=== PATIENT | female | born 1945 | race Caucasian/White ===

== ENCOUNTER 2018-04-30 14:10 | Outpatient (CLI) | payer MEDICARE, OTHER | END 2018-04-30 14:11 | disposition home or self-care (01) | LOC: BICMAMMO 14:10 | PROVIDERS: ATTEND Internal Medicine Geriatric Medicine | DX: Z13.820 Encounter for screening for osteoporosis (principal); N63.10 Unspecified lump in the right breast, unspecified quadrant; M85.89 Other specified disorders of bone density and structure, multiple sites; R92.8 Other abnormal and inconclusive findings on diagnostic imaging of breast | CPT/HCPCS: 77066; 77080; G0279 ==

== ENCOUNTER 2018-10-23 18:36 | Emergency (ER) | payer MEDICARE, OTHER ==
[2018-10-23] MEDS ORDERED: Adacel (T-DAP) 0.5 ML SYRINGE ONE (20:49)
[2018-10-23] MEDS ORDERED: Bacitracin Zinc 1 Packet ONE (21:23)
== END 2018-10-23 21:33 | disposition home or self-care (01) ==
LOC: ERS 18:36
DX: S01.01XA Laceration without foreign body of scalp, initial encounter (principal); W01.198A Fall on same level from slipping, tripping and stumbling with subsequent striking against other object, initial encounter
CPT/HCPCS: 12011; 90471; 90715

== ENCOUNTER 2019-05-02 15:48 | Outpatient (CLI) | payer MEDICARE, OTHER ==
--- NOTE | 2019-05-02 16:37 | MMO ---
Bilateral MAMMO Bilat Screen [facility]. CLINICAL HISTORY: Patient is 73 years old and is seen for screening. The patient has no family history of breast cancer. The patient has no personal history of cancer. The patient has a history of right Excisional Biopsy at age 50. VIEWS: The views performed were: bilateral craniocaudal with tomosynthesis and bilateral mediolateral oblique with tomosynthesis. FILMS COMPARED: The present examination has been compared to prior imaging studies performed at [facility] on 01/13/2016, 01/15/2017 and 04/30/2018, and at [facility] on 01/08/2015. This study has been interpreted with the assistance of computer-aided detection. MAMMOGRAM FINDINGS: There are scattered fibroglandular densities. There are benign appearing calcifications seen in both breasts. There are no suspicious masses, suspicious calcifications, or new areas of architectural distortion. IMPRESSION: THERE IS NO MAMMOGRAPHIC EVIDENCE OF MALIGNANCY. A ROUTINE FOLLOW-UP MAMMOGRAM IN 1 YEAR IS RECOMMENDED. THE RESULTS OF THIS EXAM WERE SENT TO THE PATIENT. ACR BI-RADS Category 2 - Benign finding MAMMOGRAPHY NOTE: 1. A negative mammogram report should not delay a biopsy if a dominant of clinically suspicious mass is present. 2. Approximately 10% to 15% of breast cancers are not detected by mammography. 3. Adenosis and dense breasts may obscure an underlying neoplasm. Reported by: JO-ANN KAM MD Electonically Signed: [id number]
== END 2019-05-02 15:49 | disposition home or self-care (01) ==
LOC: BICMAMMO 15:48
PROVIDERS: ATTEND Internal Medicine
DX: Z12.31 Encounter for screening mammogram for malignant neoplasm of breast (principal)
CPT/HCPCS: 77063; 77067

== ENCOUNTER 2019-08-11 08:13 | Outpatient (CLI) | payer MEDICARE, OTHER ==
--- NOTE | 2019-08-11 08:59 | MMO ---
Right Breast MAMMO Unilat Diag [facility]. CLINICAL HISTORY: Patient is 73 years old and is seen for diagnostic exam and palpable abnormality in the right breast. The patient has no family history of breast cancer. The patient has no personal history of cancer. The patient has a history of right Excisional Biopsy at age 50. VIEWS: The views performed were: right craniocaudal with tomosynthesis; right mediolateral oblique with tomosynthesis; and right mediolateral with tomosynthesis. FILMS COMPARED: The present examination has been compared to prior imaging studies performed at [facility] on 01/15/2017, 04/30/2018, 05/02/2019 and 08/11/2019. This study has been interpreted with the assistance of computer-aided detection. MAMMOGRAM FINDINGS: There are scattered fibroglandular densities. There are benign appearing calcifications in the right breast. No mammographic abnormality is seen at the site of palpable concern (4:00). Please see US report. IMPRESSION: FINDING IN THE RIGHT BREAST REQUIRES ADDITIONAL EVALUATION. AN ULTRASOUND EXAM IS RECOMMENDED. THE RESULTS OF THIS EXAM WERE SENT TO THE PATIENT. ACR BI-RADS Category 0 - Incomplete: Need additional imaging evaluation. [facility] will notify the patient of the need for additional imaging services. MAMMOGRAPHY NOTE: 1. A negative mammogram report should not delay a biopsy if a dominant of clinically suspicious mass is present. 2. Approximately 10% to 15% of breast cancers are not detected by mammography. 3. Adenosis and dense breasts may obscure an underlying neoplasm. Reported by: ERIK BLOOD MD Electonically Signed: [id number]
--- NOTE | 2019-08-11 09:11 | ULT ---
RIGHT BREAST ULTRASOUND: HISTORY: Palpable abnormality at the 4 o'clock position of the right breast. CORRELATION: Mammogram from the same day. FINDINGS: Sonographic evaluation of the region of palpable concern in the 4 o'clock position of the right breas t, 2 cm from the nipple, demonstrates a well circumscribed, nonshadowing, fairly anechoic mass, measu ring about 3 mm, without definite through transmission. This likely represents a cyst but since there is no definite through transmission, recommend followup with ultrasound in six months. IMPRESSION: BI-RADS category 3 - probably benign findings. Six month follow-up right breast ultrasound is recommended. POS: OFF
== END 2019-08-11 08:14 | disposition home or self-care (01) ==
LOC: BICMAMMO 08:13
PROVIDERS: ATTEND Physician Assistant
DX: N63.10 Unspecified lump in the right breast, unspecified quadrant (principal)
CPT/HCPCS: 76642; 77065; G0279

== ENCOUNTER 2020-01-20 07:49 | Outpatient (CLI) | payer MEDICARE, OTHER ==
--- NOTE | 2020-01-20 08:08 | ULT ---
EXAM: US Breast Limited Rt PROVIDED CLINICAL HISTORY: Follow up right breast mass COMPARISON: 08/11/2019 FINDINGS: Limited sonographic interrogation of the right breast at the 4:00 position in the region of prior son ographic concern demonstrates a stable circumscribed hypoechoic focus measuring approximately 3 mm. Adjacent calcification is now noted. IMPRESSION: Stable exam. Six-month follow-up is recommended. BI-RADS 3 -- probably benign, 6-month follow-up
== END 2020-01-20 07:50 | disposition home or self-care (01) ==
LOC: BICULT 07:49
PROVIDERS: ATTEND Internal Medicine
DX: N64.9 Disorder of breast, unspecified (principal)

== ENCOUNTER 2020-05-06 09:16 | Outpatient (CLI) | payer MEDICARE, OTHER ==
--- NOTE | 2020-05-06 10:34 | MMO ---
Bilateral MAMMO Bilat Diag [facility]. CLINICAL HISTORY: Patient is 74 years old and is seen for diagnostic exam. The patient has no family history of breast cancer. The patient has no personal history of cancer. The patient has a history of right Excisional Biopsy at age 50. VIEWS: The views performed were: bilateral craniocaudal with tomosynthesis; bilateral mediolateral oblique with tomosynthesis; and bilateral mediolateral with tomosynthesis. FILMS COMPARED: The present examination has been compared to prior imaging studies performed at [facility] on 08/11/2019, 01/20/2020 and 05/06/2020. This study has been interpreted with the assistance of computer-aided detection. MAMMOGRAM FINDINGS: There are scattered fibroglandular densities. Finding 1: Benign calcifications are noted bilaterally. Finding 2: No mammographic correlate to the US finding in the right breast is seen (4:00). A follow up US is recommended in 6 months. IMPRESSION: FINDING 1: FINDINGS IN BOTH BREASTS ARE BENIGN. FINDING 2: FINDING IN THE RIGHT BREAST IS PROBABLY BENIGN. FOLLOW-UP IN 6 MONTHS IS RECOMMENDED. THE RESULTS OF THIS EXAM WERE SENT TO THE PATIENT. ACR BI-RADS Category 3 - Probably benign finding - short interval follow-up suggested. [facility] will notify the patient of the need for additional imaging services. MAMMOGRAPHY NOTE: 1. A negative mammogram report should not delay a biopsy if a dominant of clinically suspicious mass is present. 2. Approximately 10% to 15% of breast cancers are not detected by mammography. 3. Adenosis and dense breasts may obscure an underlying neoplasm. Reported by: ERIK BLOOD MD Electonically Signed: [id number]
--- NOTE | 2020-05-06 10:39 | BD ---
EXAM: Bone densitometry using DEXA HISTORY: 74 yo female. Screening for postmenopausal osteoporosis FINDINGS: L1--bone mineral density 0.744 g/sq cm; T score -2.2 ; Z score 0.0 L2--bone mineral density 0.905 g/sq cm; T score -1.1 ; Z score 1.3 L3--bone mineral density 1.027 g/sq cm; T score -0.5 ; Z score 2.1 L4--bone mineral density 1.133 g/sq cm; T score 0.7 ; Z score 3.3 Total L1-L4--bone mineral density 0.977 g/sq cm; T score -0.6 ; Z score 1.9 Left femoral neck--bone mineral density0.699; T score -1.4 ; Z score 0.8 Total proximal left femur--bone mineral density 0.713; T score -1.9 ; Z score 0.0 The 10 year fracture risk for a major osteoporotic fracture is 18% and for a hip fracture is 9.1%. IMPRESSION: Osteopenia
--- NOTE | 2020-05-06 10:55 | ULT ---
RIGHT BREAST ULTRASOUND: HISTORY: Followup right breast mass. COMPARISON: 01/20/2020 and . FINDINGS: Correlation is made with the mammograms of the same day. Limited sonographic evaluation of the right breast at the 4 o'clock position in the region of previ ous sonographic concern demonstrates a stable well-circumscribed nonshadowing hypoechoic lesion measu ring 3 mm. Adjacent calcifications are again seen. IMPRESSION: BIRADS category 3 - probably benign findings. Six-month followup right breast ultrasound is recommen ded. POS: OFF
== END 2020-05-06 09:17 | disposition home or self-care (01) ==
LOC: BICMAMMO 09:16
PROVIDERS: ATTEND Internal Medicine
DX: N64.9 Disorder of breast, unspecified (principal); M85.89 Other specified disorders of bone density and structure, multiple sites
CPT/HCPCS: 76642; 77066; 77080; G0279

== ENCOUNTER 2020-11-02 09:53 | Outpatient (CLI) | payer MEDICARE, OTHER | END 2020-11-02 09:54 | disposition home or self-care (01) | LOC: BICMAMMO 09:53 | PROVIDERS: ATTEND Internal Medicine | DX: N64.9 Disorder of breast, unspecified (principal) | CPT/HCPCS: 76642; 77065; G0279 ==

== ENCOUNTER 2021-05-23 13:49 | Outpatient (CLI) | payer MEDICARE, OTHER | END 2021-05-23 13:50 | disposition home or self-care (01) | LOC: BICMAMMO 13:49 | PROVIDERS: ATTEND Internal Medicine | DX: N64.9 Disorder of breast, unspecified (principal) | CPT/HCPCS: 76642; 77066; G0279 ==

== ENCOUNTER 2021-12-19 09:21 | Outpatient (CLI) | payer MEDICARE, OTHER | END 2021-12-19 09:22 | disposition home or self-care (01) | LOC: SCSMRI 09:21 | PROVIDERS: ATTEND Internal Medicine | DX: M25.511 Pain in right shoulder (principal); M75.121 Complete rotator cuff tear or rupture of right shoulder, not specified as traumatic; S46.211A Strain of muscle, fascia and tendon of other parts of biceps, right arm, initial encounter; M62.511 Muscle wasting and atrophy, not elsewhere classified, right shoulder ==

== ENCOUNTER 2022-05-25 08:28 | Outpatient (CLI) | payer MEDICARE, OTHER | END 2022-05-25 08:29 | disposition home or self-care (01) | LOC: BICMAMMO 08:28 | PROVIDERS: ATTEND Internal Medicine | DX: Z12.31 Encounter for screening mammogram for malignant neoplasm of breast (principal); Z78.0 Asymptomatic menopausal state; M85.852 Other specified disorders of bone density and structure, left thigh; M85.851 Other specified disorders of bone density and structure, right thigh | CPT/HCPCS: 77063; 77067; 77080 ==

== ENCOUNTER 2023-07-11 10:44 | Outpatient (CLI) | payer MEDICARE, OTHER | END 2023-07-11 10:45 | disposition home or self-care (01) | LOC: BICMAMMO 10:44 | PROVIDERS: ATTEND Internal Medicine | DX: Z12.31 Encounter for screening mammogram for malignant neoplasm of breast (principal); Z91.89 Other specified personal risk factors, not elsewhere classified | CPT/HCPCS: 77063; 77067 ==

== ENCOUNTER 2023-09-20 11:40 | Outpatient (CLI) | payer MEDICARE, OTHER | END 2023-09-20 11:41 | disposition home or self-care (01) | LOC: BICRAD 11:40 | PROVIDERS: ATTEND Nurse Practitioner Family | DX: M25.512 Pain in left shoulder (principal) ==

== ENCOUNTER 2024-07-16 09:00 | Outpatient (CLI) | payer MEDICARE, OTHER | END 2024-07-16 09:01 | disposition home or self-care (01) | LOC: BICMAMMO 09:00 | PROVIDERS: ATTEND Internal Medicine | DX: Z12.31 Encounter for screening mammogram for malignant neoplasm of breast (principal); Z78.0 Asymptomatic menopausal state; M85.89 Other specified disorders of bone density and structure, multiple sites; Z91.89 Other specified personal risk factors, not elsewhere classified | CPT/HCPCS: 77063; 77067; 77080 ==

== ENCOUNTER → 2024-08-07 | Emergency (ER) | payer MEDICARE, OTHER | LOC: ERS 13:56 | DX: Z53.21 Procedure and treatment not carried out due to patient leaving prior to being seen by health care provider (principal) ==

== ENCOUNTER 2024-09-21 10:29 | Emergency (ER) | payer MEDICARE, OTHER ==
[2024-09-21] MEDS ORDERED: Lidocaine 1% w/Epinephrine 1:100K 20 ML VIAL ONE (12:55)
== END 2024-09-21 16:20 | disposition home or self-care (01) ==
LOC: ERS 10:29
DX: S01.81XA Laceration without foreign body of other part of head, initial encounter (principal); S09.90XA Unspecified injury of head, initial encounter; I10 Essential (primary) hypertension; Z79.899 Other long term (current) drug therapy; W01.10XA Fall on same level from slipping, tripping and stumbling with subsequent striking against unspecified object, initial encounter; Y93.01 Activity, walking, marching and hiking; Y92.009 Unspecified place in unspecified non-institutional (private) residence as the place of occurrence of the external cause
CPT/HCPCS: 12052; 70450

== ENCOUNTER 2025-07-17 08:46 | Outpatient (CLI) | payer MEDICARE, OTHER | END 2025-07-17 08:47 | disposition home or self-care (01) | LOC: BICMAMMO 08:46 | PROVIDERS: ATTEND Internal Medicine | DX: Z12.31 Encounter for screening mammogram for malignant neoplasm of breast (principal); Z91.89 Other specified personal risk factors, not elsewhere classified | CPT/HCPCS: 77063; 77067 ==